=== PATIENT | male | born 1950 | race Caucasian/White ===

== ENCOUNTER 2022-12-21 16:29 | Emergency (ER) | payer MEDICARE ==
[~2022-12-21] VITALS: Ht 180.3 cm; Wt 88.6 kg
[~2022-12-21 16:29] MED LIST: LISI5TAB PO; TAMS-13 PO
[2022-12-21] MEDS ORDERED: SITA50 PO (17:38)
[2022-12-21] MEDS ORDERED: ATOR10TA PO (18:19)
[2022-12-21] MEDS ORDERED: ACETAMINOPHEN 325 MG TABLET PO ONE (20:15)
[2022-12-21] MEDS ORDERED: HYDROCODONE/ACETAMINOPHEN 5-325 MG TABLET PO ONE (20:15)
[2022-12-21 21:35] VITALS: BP 128/84
== END 2022-12-21 23:16 | disposition home or self-care (01) ==
LOC: EMS 16:37 → EDBD 16:37 → EMS 23:16
DX: S01.01XA Laceration without foreign body of scalp, initial encounter (principal); S60.512A Abrasion of left hand, initial encounter; S60.511A Abrasion of right hand, initial encounter; S09.90XA Unspecified injury of head, initial encounter; T14.8XXA Other injury of unspecified body region, initial encounter; I10 Essential (primary) hypertension; Z90.49 Acquired absence of other specified parts of digestive tract; Z88.8 Allergy status to other drugs, medicaments and biological substances; Y08.89XA Assault by other specified means, initial encounter; Y93.89 Activity, other specified; Y92.89 Other specified places as the place of occurrence of the external cause; Y99.8 Other external cause status
CPT/HCPCS: 70450; 70486; 71045; 71250; 72125; 99284